=== PATIENT | female | born 1975 | race Caucasian/White ===

== ENCOUNTER 2018-05-31 10:49 | Emergency (ER) | payer OTHER ==
[~2018-05-31] VITALS: Ht 170.2 cm; Wt 103.5 kg
[2018-05-31 10:52] VITALS: BP 136/73; PULSE 89; RESP 18; Ht 170.2 cm; Wt 103.5 kg
[2018-05-31] MEDS ORDERED: ONDANSETRON (ODT) 4 MG TAB ODT STA (11:19)
[2018-05-31] MEDS ORDERED: IBUPROFEN 600 MG TAB PO ONE (11:30)
[2018-05-31] MEDS ORDERED: IBUP-1542 PO (11:59)
[2018-05-31] MEDS ORDERED: ONDA4TAB14 PO (11:59)
[2018-05-31] MEDS ORDERED: ACET500C5 PO (12:00)
--- NOTE | 2018-05-31 12:05 | ERD ---
ER Documentation Chief Complaint Chief Complaint headache w/nusea x3 days, denies hx;migraine HPI 42-year-old female patient with no significant past medical history presents to ED complaining of scalp pain that started about 4 days ago associated with nausea. Patient reports that it hurts when she pulls her hair. Rates her pain a 7 out of 10. Reports that she has not had any vomiting or diarrhea. Denies any fever, chills, nausea, neck stiffness, abdominal pain, chest pain, shortness of breath. Denies any head or neck injuries. Reports her last mensuration is o n May 15, 2018. ROS All systems reviewed and are negative except as per history of present illness. Medications Home Meds Active Scripts Acetaminophen* (Tylophen*) 500 Mg Capsule, 1 CAP PO Q6H PRN for PAIN AND OR ELEVATED TEMP, #20 CAP Prov:JOHNNIE NELSON PA-C 05/31/18 Ondansetron (Ondansetron Odt) 4 Mg Tab.rapdis, 4 MG PO Q6H PRN for NAUSEA AND/OR VOMITING, #10 TAB Prov:JOHNNIE NELSON PA-C 05/31/18 Allergies Allergies: Coded Allergies: No Known Allergy (Unverified , 05/31/18) PMhx/Soc Hx Alcohol Use: No Hx Substance Use: Yes Hx Tobacco Use: Yes Smoking Status: Current every day smoker FmHx Family History: No diabetes, No coronary disease Physical Exam Vitals Vital Signs Date Temp Pulse Resp B/P (MAP) Pulse Ox O2 O2 Flow FiO2 Time Delivery Rate 05/31/18 98.6 89 18 136/73 98 10:52 (94) Physical Exam Const: Juk-uso-zzqqqhyor, well-nourished. In no acute distress. Head: Atraumatic, normocephalic. Tenderness to palpation of the scalp. No erythema, edema of the scalp. No hematoma. No lu sign. Eyes: Normal Conjunctiva without injection. No purulent discharge. PERRLA. EOMI ENT: Normal external ear. Ear canal without erythema. Tympanic membrane pearly aguillon without effusion or bulging. No hemotympanum. Nasal canal clear with normal turbinates. Moist oropharynx without tonsillar exudates. Non-erythematous pharynx. Uvula midline. No drooling. No trismus. Neck: No cervical midline tenderness. Full range of motion. No meningismus. No cervical lymphadenopathy. No JVD. Resp: Clear to auscultation bilaterally. No wheezing, rhonchi, rales, or crackles. No accessory muscle use. No retractions. Cardio: Regular rate and rhythm. No murmurs, rubs or gallops. Abd: Soft, non tender, non distended. Normal bowel sounds. No palpable masses. No rebound tenderness. No guarding. Negative McBurney's Point. Negative Wilson's Sign. Skin: Normal skin turgor. No petechiae or rashes Back: No midline tenderness. No CVA tenderness. Ext: No cyanosis, or edema. Distal pulses intact bilaterally. Neur: Awake and alert. Normal gait. Normal coordination. Cranial Nerves II- VII intact. Normal finger to nose. Muscle strength 5/5. Sensation intact. Psych: Normal Mood and Affect Results 24 hrs Current Medications Medications Dose Sig/Meme Start Time Status Last (Trade) Ordered Route PRN Stop Time Admin Dose Reason Admin Ibuprofen 600 mg ONCE ONCE 05/31/18 DC 05/31/18 (Motrin) PO 11:30 05/31/18 11:24 11:31 Ondansetron 4 mg ONCE STAT 05/31/18 DC 05/31/18 HCl (Zofran ODT 11:19 05/31/18 11:24 Odt) 11:20 Procedures/MDM 42-year-old female patient with no significant past medical history presents to ED complaining of scalp tenderness. Patient is afebrile and nontoxic-appearing. Differentials include tension versus migraine headaches. Low suspicion for intracranial bleed, GCA, subarachnoid hemorrhage, meningitis, TIA, stroke, subdural hematoma, epidural hematoma, contact dermatitis, seborrheic dermatitis, carotid dissection, or other emergent conditions. Discussed with Dr. Laguna who agreed with the management and discharge plan. Diagnosis: Scalp pain, Nausea Discharge medications: Tylenol, Zofran Follow up with primary care physician in 1-2 days referral to see a neurologist, software support representative. Instructed patient to return to the ED sooner for any worsening symptoms. Patient's questions were answered. Patient is hemodynamically stable. Patient understood and agreed with discharge plan. Patient discharged stable. Disclaimer: Inadvertent spelling and grammatical errors are likely due to EHR/dictation software use and do not reflect on the overall quality of patient care. Also, please note that the electronic time recorded on this note does not necessarily reflect the actual time of the patient encounter. Departure Diagnosis: Primary Impression: Scalp pain Additional Impression: Nausea Condition: Stable Patient Instructions: Headache, Unspecified Referrals: [facility] YOU HAVE RECEIVED A MEDICAL SCREENING EXAM AND THE RESULTS INDICATE THAT YOU DO NOT HAVE A CONDITION THAT REQUIRES URGENT TREATMENT IN THE EMERGENCY DEPARTMENT. FURTHER EVALUATION AND TREATMENT OF YOUR CONDITION CAN WAIT UNTIL YOU ARE SEEN IN YOUR DOCTORS OFFICE WITHIN THE NEXT 1-2 DAYS. IT IS YOUR RESPONSIBILITY TO MAKE AN APPOINTMENT FOR FOLOW-UP CARE. IF YOU HAVE A PRIMARY DOCTOR --you should call your primary doctor and schedule an appointment IF YOU DO NOT HAVE A PRIMARY DOCTOR YOU CAN CALL OUR PHYSICIAN REFERRAL HOTLINE AT IF YOU CAN NOT AFFORD TO SEE A PHYSICIAN YOU CAN CHOSE FROM THE FOLLOWING [facility] [address] [facility]. [facility] [address] [facility] [address] [facility] [facility] [address] [facility]. [facility] [address] [facility]. [facility] [address] [facility]. [facility] YOU HAVE RECEIVED A MEDICAL SCREENING EXAM AND THE RESULTS INDICATE THAT YOU DO NOT HAVE A CONDITION THAT REQUIRES URGENT TREATMENT IN THE EMERGENCY DEPARTMENT. FURTHER EVALUATION AND TREATMENT OF YOUR CONDITION CAN WAIT UNTIL YOU ARE SEEN IN YOUR DOCTORS OFFICE WITHIN THE NEXT 1-2 DAYS. IT IS YOUR RESPONSIBILITY TO MAKE AN APPOINTMENT FOR FOLOW-UP CARE. IF YOU HAVE A PRIMARY DOCTOR --you should call your primary doctor and schedule and appointment IF YOU DO NOT HAVE A PRIMARY DOCTOR YOU CAN CALL OUR PHYSICIAN REFERRAL HOTLINE AT . IF YOU CAN NOT AFFORD TO SEE A PHYSICIAN YOU CAN CHOSE FROM THE FOLLOWING [facility] INSTITUTIONS: [facility] [address] [place] [address] [facility] [address] [place] [address] [facility] + [address] [address] [facility] Hours: Fri - Fri 9:00 AM - 5:00 PM Additional Instructions: Call your primary care doctor TOMORROW for an appointment during the next 2-3 days for a referral to see an opthalmologist and neurologist.See the doctor sooner or return here if your condition worsens before your appointment time. JOHNNIE NELSON PA-C May 31, 2018 12:05
== END 2018-05-31 12:16 | disposition home or self-care (01) ==
LOC: FTE 10:49
DX: R51 Headache (principal); R11.0 Nausea; F17.210 Nicotine dependence, cigarettes, uncomplicated
CPT/HCPCS: Z7610 ×2; 99283